=== PATIENT | female | born 1995 | race Caucasian/White ===

== ENCOUNTER 2019-01-11 08:19 | Emergency (ER) | payer MEDICAID, SELFPAY ==
[2019-01-11 08:20] VITALS: BP 143/69; PULSE 81; RESP 18; TEMP 36.8; O2SAT 98; BMI 28.6
--- NOTE | 2019-01-11 08:31 | ED.DCSUM_ITS ---
- ER Visit Summary Date of Service: 01/11/19 Chief Complaint: Abdominal pain History of Present Illness: The patient is a 23 F who is had abdominal pain for 5 days. She describes sharp pain as well as pressure in her suprapubic area that radiates into her lower back. Nothing seems to make this better. Sexual intercourse makes this pain worse. She has had nausea which preceded the pain. Denies any diarrhea or constipation. No dysuria hematuria or frequency. Denies any vaginal bleeding or vaginal discharge. She has had a history of a laparoscopy to evaluate for endometriosis but no other abdominal surgeries. She has not had any fevers at home. She states her last menstrual cycle was at the end of November and she is due to be starting this soon Physical Examination: Vital signs reviewed. HEENT exam unremarkable. Heart is regular rate and rhythm without murmurs. Lungs are clear to auscultation. Abdomen is soft with suprapubic tenderness. There is no guarding or rebound tenderness. Extremities reveal no edema. Skin exam normal. Neurologic exam normal. Test Results: HCG negative. Urinalysis negative for blood or infection Emergency Department Course and Treatment: Patient was given naproxen. She felt improvement with this. She is eating and drinking the room without difficulties. This could be related to ovarian cysts or possibly endometriosis as the patient has had a laparoscopy for this in the past. At this point I do not feel she needs any blood studies or imaging studies as her exam is fairly benign. Patient will be discharged with naproxen for pain. She will call her [facility] for follow-up Treatment Plan: [] Disposition: Discharge Impression: Pelvic pain This note was generated with [employer] dictation software. It may contain incorrect words, spelling, and punctuation that were not noted in review of the chart prior to signing ED Disposition - Plan for ED Patient: Referrals: [facility] Doctor,Out of [NON-STAFF] -
[2019-01-11 09:02] LABS: Mucous, Urine 0 SEEN /hpf (<or=2+); Red Blood Cells-Urine 0 SEEN /hpf (0-5); White Blood Cells 0 SEEN /hpf (0-5)
[2019-01-11] MEDS: Naproxen 500 MG Tablet PO (09:03)
[2019-01-11 09:05] LABS: Color, Urine Yellow (Yellow); Glucose, Dipstick Normal (Normal); Ketone-Dipstick Negative (Negative); Leukocyte Esterase-Dipstick Negative /ul (Negative); Nitrite-Dipstick Negative (Negative); Occult Blood-Urine Negative /ul (Negative); Protein-Dipstick 15 mg/dl (Negative); Urine Bilirubin Dipstick Negative (Negative); Urine Clarity Sl. Cloudy (Clear); Urine Urobilinogen Normal (Normal)
[2019-01-11 09:08] LABS: Internal QC Validated? YES +Cl - CLEAR BKGD; Pregnancy, Urine Negative Negative
[2019-01-11 09:12] LABS: Bacteria 1+ /hpf (None Seen); Squamous Epithelial Cells - UA 0-5 SEEN /hpf (5-10)
--- NOTE | 2019-01-11 09:18 | DCINST.ED_ITS ---
ED Disposition - Plan for ED Patient: Disposition: Home or Assisted Living Instructions: ED Pelvic Pain [facility] Prescriptions: Naproxen [Naprosyn] 500 mg PO BID PRN #20 tab Referrals: [facility] Doctor,Out of [NON-STAFF] - Jazmin Curry MD [STAFF PHYSICIAN] -
[2019-01-11 09:27] VITALS: BP 108/67; PULSE 71; RESP 15; O2SAT 98
== END 2019-01-11 09:28 | disposition home or self-care (01) ==
PROVIDERS: Emergency Provider Emergency Medicine; Family Provider Internal Medicine; PCP Internal Medicine
DX: R10.2 Pelvic and perineal pain (principal)
CPT/HCPCS: 81001; 81025; 99283

== ENCOUNTER 2019-03-13 09:36 | Emergency (ER) | payer MEDICAID, SELFPAY ==
[2019-03-13 09:37] VITALS: BP 124/84; PULSE 74; RESP 18; TEMP 36.6; O2SAT 100; BMI 25.7
--- NOTE | 2019-03-13 10:10 | CT_ITS ---
STUDY: CT ABDOMEN AND PELVIS WITH CONTRAST REASON FOR EXAM: Female, 24 years old. Abdominal pain. Nausea. Vomiting. Endometriosis. Black stool. RADIATION DOSAGE (If Supplied By Facility): CTDIvol = ( 13.58 ) mGy, DLP = ( 691.21 ) mGycm TECHNIQUE: Transaxial images were obtained from the dome of the diaphragm to the symphysis pubis with oral contrast. 100mL IV/Oral Isovue 300 was administered. Sagittal and coronal images were reconstructed. Individualized dose optimization techniques were used for this CT. COMPARISON: None. FINDINGS: Lung bases: Unremarkable. Heart: Unremarkable. Liver: Unremarkable. Gallbladder/biliary ducts: Unremarkable. Pancreas: Unremarkable. Spleen: Splenic granulomas (axial image 25 series 2). Adrenal glands: Unremarkable. Kidneys/ureters/bladder: Bilateral symmetric renal parenchymal enhancement. Nondistended ureters. Normal urinary bladder. Uterus/adnexa: Tampon. Heterogeneous attenuation of the uterus and adnexal regions with mild hyperemia. Large bowel/small bowel: No acute small bowel or large bowel process. Appendix: Unremarkable (axial image 79 series 2). Gastroesophageal junction/stomach: Unremarkable. Retroperitoneum/lymph nodes: No intra-abdominal free air. Trace pelvic free fluid (axial image 97 and series 2). No pathologically enlarged lymph nodes. Vascular: Unremarkable. Osseous structures: No significant degenerative changes. Tiny Schmorl's nodes. No acute findings. Subcutaneous/soft tissues: Small fat-containing umbilical hernia. No acute findings. CT/Abdomen/Pelvis WITH Contrast IMPRESSION: No acute intraabdominal/pelvic findings [employer] SPECIFICATION INSPECTOR findings statistically physiologic and/or related the patient's history of endometriosis (correlate cycle timing) Trace pelvic free fluid Electronically Signed: Hebert Belcher DO at 12:12 EDT Tel , Service support ,
--- NOTE | 2019-03-13 10:14 | ED.VISSUMM ---
- ER Visit Summary Date of Service: 03/13/19 Chief Complaint: Abdominal pain History of Present Illness: The patient is a 24 F who 3 days ago had sudden onset of left lower quadrant abdominal pain radiating up to the mid right abdomen. Pain was severe for about an hour and a half. She had nausea and vomiting at that time. Patient states the severe pain subsided but she still has soreness in her abdomen. She states today she had black stool. She does report taking Pepto a few days ago. Patient reports history of chronic abdominal problems. She states intermittently she will get abdominal pain with bouts of nausea and vomiting for several days at a time. Her brother has a history of ulcerative colitis. Physical Examination: Vital signs unremarkable. Patient lying in bed no acute distress. Heart is regular rate and rhythm. Lung sounds are clear. Abdomen is soft with mild tenderness along the left side of the abdomen. No guarding or rebound. Active bowel sounds are noted. Test Results: CBC and chemistry studies normal. LFTs and lipase normal. Urinalysis and test negative. CT abdomen pelvis shows no acute findings. There is a trace amount of free fluid in the pelvis. Emergency Department Course and Treatment: Patient was given Toradol, Zofran, and IV fluids. On repeat evaluation she is resting comfortably. Test results were discussed with her. We discussed the possibility of a small ovarian cyst that may ruptured a couple days ago and her pain was most severe. At this time there is no acute etiology for her symptoms. Treatment Plan: [] Disposition: Discharge Impression: Abdominal pain, uncertain etiology This note was generated with [employer] dictation software. It may contain incorrect words, spelling, and punctuation that were not noted in review of the chart prior to signing ED Disposition - Plan for ED Patient: Disposition: Home or Assisted Living Instructions: ED Abdominal Pain Unkn Cause Prescriptions: Ondansetron [Zofran Odt] 4 mg PO Q8H PRN PRN #10 tablet PRN Reason: Nausea Ketorolac [Toradol] 10 mg PO Q6H PRN #14 tablet PRN Reason: Pain Referrals: Jorge Luis Mendoza MD [Primary Care Provider] - 1 Week if not improving
[2019-03-13 10:28] LABS: Absolute Lymphocyte Count 2.14 X10^3/ul (0.83-4.51); Absolute Neutrophil Count 3.8 X10^3/uL (2.0-7.7); Basophil# 0.01 X10^3/uL; Basophil% 0.2 % (0-1); Eosinophil# 0.05 X10^3/uL; Eosinophils% 0.8 % (0-5); Hematocrit 41.7 % (37-47); Hemoglobin 14.6 g/dl (12.0-15.0); Lymphocyte # 2.14 X10^3/ul (4.0); Lymphocyte % 33.2 % (19-41); Mean Corpuscular Hgb 30.5 pg (27.0-32.0); Mean Corpuscular Volume 87.1 fL (81-99); Mean Platelet Vol. 10.3 fl (6.2-12.0); Monocyte% 6.2 % (0-10); Neutrophil # 3.84 X10^3/uL (2.7-7.7); Neutrophil % 59.4 % (47-70); POSITIVE COUNT NO; POSITIVE DIFFERENTIAL NO; POSITIVE MORPHOLOGY NO; Platelet Count 210 K/mm3 (150-450); RBC Distribution Width CV 12.4 % (11.6-14.6); Red Blood Count 4.79 M/mm3 (4.2-5.4); White Blood Count 6.5 K/mm3 (4.4-11.0)
[2019-03-13] MEDS: Ondansetron 4 MG/2 ML Vial IV (10:28)
[2019-03-13] MEDS: 0.9% Normal Saline 1,000 ML 150 ML IV (10:28)
[2019-03-13] MEDS: Ketorolac 30 MG/ML Syringe IV (10:28)
[2019-03-13 10:38] LABS: Bacteria 0 SEEN /hpf (None Seen); Mucous, Urine 0 SEEN /hpf (<or=2+); Red Blood Cells-Urine 0 SEEN /hpf (0-5); White Blood Cells 0 SEEN /hpf (0-5)
[2019-03-13 10:41] LABS: AST(SGOT) 15 U/L (15-37); Alanine Aminotransfer ALT/SGPT 27 U/L (13-56); Alkaline Phosphatase 94 U/L (45-117); Anion Gap 4 (5-15); BUN 12 mg/dL (7-18); BUN/Creat Ratio 15.7 RATIO (10-20); Bilirubin, Direct 0.18 mg/dL (0.00-0.30); Chloride 111 mmol/L (98-107); Creatinine, Serum 0.76 mg/dL (0.55-1.02); EST Glomerular Filtration Rate 101 mL/min (>60); Est Glom Filt Rate - Afr Amer 122 mL/min (>60); Estimated Creatinine Clearance 100.26 ml/min; Glucose 86 mg/dL (74-106); Lipase 68 U/L (73-393); Potassium 4.2 mmol/L (3.5-5.1); Sodium Level 141 mmol/L (136-145)
[2019-03-13 10:42] LABS: Color, Urine Straw (Yellow); Glucose, Dipstick Normal (Normal); Ketone-Dipstick Negative (Negative); Leukocyte Esterase-Dipstick Negative /ul (Negative); Nitrite-Dipstick Negative (Negative); Occult Blood-Urine Negative /ul (Negative); Protein-Dipstick Negative (Negative); Specific Gravity, Urine 1.005 (1.002-1.030); Urine Bilirubin Dipstick Negative (Negative); Urine Clarity Clear (Clear); Urine Urobilinogen Normal (Normal)
[2019-03-13 10:49] LABS: Squamous Epithelial Cells - UA 0-5 SEEN /hpf (5-10)
[2019-03-13 10:51] LABS: Internal QC Validated? YES +Cl - CLEAR BKGD; Pregnancy, Serum, hCG Quali. NEGATIVE Negative
[2019-03-13 12:52] VITALS: BP 126/57; PULSE 62; RESP 15; O2SAT 99
== END 2019-03-13 12:53 | disposition home or self-care (01) ==
PROVIDERS: Emergency Provider Emergency Medicine; Family Provider Internal Medicine; PCP Internal Medicine
DX: R10.32 Left lower quadrant pain (principal); K21.9 Gastro-esophageal reflux disease without esophagitis
CPT/HCPCS: 74177; 80048; 80076; 81001; 83690; 84703; 85025; 96361; 96374; 96375; 99283; J7030; Q9967; A4216; J2405

== ENCOUNTER 2020-01-04 05:51 | Emergency (ER) | payer MEDICAID, SELFPAY ==
[2020-01-04 05:52] VITALS: PULSE 82; RESP 16; TEMP 36.9; O2SAT 98; BMI 25.0
--- NOTE | 2020-01-04 05:56 | ED.VISSUMM ---
- ER Visit Summary Date of Service: 01/04/20 Chief Complaint: Headache History of Present Illness: The patient is a 24 F who presents with a headache. Started about an hour ago that woke her up from sleep. She describes sharp and burning pains in the front left part of her head. She did have vomiting at home. She admits to some blurry vision but no photophobia. No direct trauma. She tried Tylenol at home without any relief. No fevers or neck pain. She does have a history of migraine headaches. Physical Examination: Vital signs reviewed. HEENT exam unremarkable. Heart is regular rate and rhythm without murmurs. Lungs are clear to auscultation. Abdomen is soft and nontender. Extremities reveal no edema. Skin exam normal. Neurologic exam normal. Test Results: None performed Emergency Department Course and Treatment: Patient was given IV fluids, Reglan and Benadryl. Her headache was not improved I gave her IV Decadron. She will be signed out to the oncoming physician for further evaluation Treatment Plan: [] Disposition: Pending Impression: Migraine headache This note was generated with [employer] dictation software. It may contain incorrect words, spelling, and punctuation that were not noted in review of the chart prior to signing ED Disposition - Plan for ED Patient: Disposition: Home or Assisted Living Instructions: ED, Migraine (Classical) Referrals: Jorge Luis Mendoza MD [Primary Care Provider] -
[2020-01-04] MEDS: 0.9% Normal Saline 1,000 ML 999 ML IV (06:03)
[2020-01-04] MEDS: Metoclopramide 10 MG/2 ML Vial IV (06:03)
[2020-01-04] MEDS: DiphenhydrAMINE 50 MG/ML Syringe 25 MG IV (06:05)
[2020-01-04 07:59] VITALS: BP 98/55; PULSE 78; RESP 16; O2SAT 97
[2020-01-04] MEDS: Acetaminophen 500 MG Tablet 1000 MG PO (07:59)
--- NOTE | 2020-01-04 08:36 | ED.DEP ---
ED Disposition - Plan for ED Patient: Disposition: Home or Assisted Living Instructions: ED, Migraine (Classical) Prescriptions: Metoclopramide [Reglan] 10 mg PO TID PRN #15 tab PRN Reason: Migraine Symptoms Transmission Status: Pending to [facility] Referrals: Jorge Luis Mendoza MD [Primary Care Provider] - As Needed Additional Instructions: Reglan every 8 hours as needed for migraine. Also take with Benadryl 25 mg.
[2020-01-04] MEDS: Morphine 4 MG/ML Syringe IV (08:44)
[2020-01-04 09:14] VITALS: BP 99/50; PULSE 65; RESP 18
== END 2020-01-04 09:15 | disposition home or self-care (01) ==
PROVIDERS: Emergency Provider Emergency Medicine; PCP Internal Medicine
DX: G43.909 Migraine, unspecified, not intractable, without status migrainosus (principal)
CPT/HCPCS: 96361; 96374; 96375; 99284; J7030; A4216

== ENCOUNTER 2020-05-11 11:55 | Outpatient (CLI) | payer MEDICAID, SELFPAY ==
[2020-05-11 12:46] VITALS: BMI 27.4
--- NOTE | 2020-05-11 13:02 | OB.TRI.NOTE ---
- Problem List (1) 25 weeks gestation of Status: Acute (2) Decreased movement Status: Acute History of Present Illness Date of Service: 05/11/20 Was patient seen by the physician?: Yes Reason For Visit: DECREASED MOVEMENT Date of Service: 05/11/20 Final NOALN: 08/20/20 Gestational age: 25 Weeks and 4 Days History of Present Illness: Patient is 25 year old that is 25.4 weeks gestation that presents with decreased movement. Patient stated she has not felt almost any movement since Tuesday and has not felt any movement today. Denies loss of fluid, vaginal bleeding or cramping. Allergies No Known Allergies Allergy (Verified 01/04/20 05:56) Review of Systems Constitutional: Denies: Anorexia Eyes: Denies: Blurred vision Cardiovascular: Denies: Chest Pain, Edema Respiratory: Denies: Cough, Shortness of Breath Gastrointestinal: Denies: Abdominal Pain Genitourinary: Denies: Dysuria Gynecological: Denies: Vaginal bleeding Neurological: Denies: Blurred vision, Headaches Physical Exam General: Alert, Oriented x3 Cardiovascular: Regular rate Lungs: Normal air movement Abdomen: Soft, Non Tender, Gravid Neurological: Cranial nerves II-XII grossly intact NST - FHR Rate Baby A Baseline: 140 Variability:: Moderate NST Reactive:: Appropriate for gestational age Uterine Activity:: none noted Impression/Plan at 25.4 weeks gestation presents for decreased movement. Monitor EFM and TOCO- once here started to feel movement Routine care Educated on kick counts and irregularity of movement prior to 28 weeks gestation Anticipate discharge home- follow up at [facility] .
== END 2020-05-11 13:05 | disposition home or self-care (01) ==
LOC: WPOUT 12:08 → WP 05-12 10:13
PROVIDERS: PCP Internal Medicine; Visit Provider Advanced Practice Midwife
DX: O36.8120 Decreased fetal movements, second trimester, not applicable or unspecified (principal); Z3A.25 25 weeks gestation of pregnancy
CPT/HCPCS: 59050; 99218; G0378

== ENCOUNTER 2020-05-26 10:55 | Outpatient (CLI) | payer MEDICAID, SELFPAY ==
[2020-05-26 11:09] VITALS: BMI 28.0
[2020-05-26 11:13] VITALS: PULSE 78; TEMP 36.7
[2020-05-26 11:14] VITALS: BP 103/64; PULSE 78
--- NOTE | 2020-05-26 16:50 | OB.TRI.NOTE ---
History of Present Illness Date of Service: 05/26/20 Was patient seen by the physician?: No Reason For Visit: DECREASED MOVEMENT Date of Service: 05/26/20 Gestational age: 27.5 Allergies No Known Allergies Allergy (Verified 05/26/20 11:08) Physical Exam Vitals: Vital Signs Temp Pulse BP 98.1 F 78 103/64 05/26/20 11:13 05/26/20 11:14 05/26/20 11:14 Impression/Plan 25yo @ 27.5 weeks- decreased FM 1) unable to get continuos FHR- But according to nursing staff baby was active with audible movements - discharge home
== END 2020-05-26 12:00 | disposition home or self-care (01) ==
LOC: WPOUT 11:02 → OBT 11:03
PROVIDERS: PCP Internal Medicine; Referring Provider Obstetrics & Gynecology; Visit Provider Obstetrics & Gynecology
DX: O36.8120 Decreased fetal movements, second trimester, not applicable or unspecified (principal); Z3A.27 27 weeks gestation of pregnancy

== ENCOUNTER 2020-08-09 16:28 | Inpatient (IN) | payer MEDICAID, SELFPAY ==
[2020-08-09] VITALS (28 sets, daily range): BP systolic 108–141; BP diastolic 55–87; PULSE 69–108; TEMP 36–36.8; O2SAT 96–100; BMI 32.2
[2020-08-09] MEDS: Lactated Ringers 500 ML 999 ML IV ×2 (16:40→19:50)
[2020-08-09 17:12] LABS: Absolute Lymphocyte Count 1.57 X10^3/uL (0.83-4.51); Absolute Neutrophil Count 6.8 X10^3/uL (2.0-7.7); Basophil# 0.03 X10^3/uL; Basophil% 0.3 % (0-1); Eosinophil# 0.13 X10^3/uL; Eosinophils% 1.4 % (0-5); Hematocrit 37.6 % (37-47); Hemoglobin 12.4 g/dL (12.0-15.0); Lymphocyte # 1.57 X10^3/ul (4.0); Lymphocyte % 16.5 % (19-41); Mean Corpuscular Hgb 28.9 pg (27.0-32.0); Mean Corpuscular Volume 87.6 fL (81-99); Mean Platelet Vol. 10.1 fl (6.2-12.0); Monocyte# 0.91 X10^3/uL; Monocyte% 9.6 % (0-10); NRBC Flagged by Analyzer 0 % (0-5); Neutrophil % 71.7 % (47-70); Platelet Count 286 K/mm3 (150-450); RBC Distribution Width CV 14.1 % (11.6-14.6); RBC Distribution Width SD 44.6 fl (35.1-43.9); Red Blood Count 4.29 M/mm3 (4.2-5.4); White Blood Count 9.5 K/mm3 (4.4-11.0)
[2020-08-09] MEDS: Lactated Ringers 1,000 ML 200 ML IV (17:15)
--- NOTE | 2020-08-09 17:43 | PCM.HP.OB ---
- Problem List (1) 38 weeks gestation of Status: Acute History Date of Admission: 08/09/20 Final NOLAN: 08/20/20 Gestational age: 38 Weeks and 3 Days History of this : This is a 25 year-old, G [3], P [1011], at 38.3 weeks gestational age that presents to triage with spontaneous contractions that started yesterday. Denies any loss of fluid or vaginal bleeding. Positive movement. Patient reports contractions that have continued to increase in frequency and pain. Reports pain 06/02. has been uncomplicated. Patient has a history of a delivery. Allergies No Known Allergies Allergy (Verified 05/26/20 11:08) Smoking Status: Former smoker Number of Fetus(es): 1 NST - FHR Rate Baby A Baseline: 130 Variability:: Moderate Accelerations:: 15 x 15 Decelerations:: None NST Reactive:: Yes FHR Category:: Category I Uterine Activity:: Every 3-5 minutes History Past Pregnancies: Past Pregnancies Delivery Date Name GA/ Weeks Outcome Route Wt Sex Labor Length Anesthesia Delivery Location Provider FOB Labs: O+ Rubella immune HB- neg HC - neg RPR- NR HIV- NR GBS- negative COVID-10- unknown Expected Delivery Method: Spontaneous Vaginal Review of Systems Constitutional: Denies: Anorexia, Chills, Fever Respiratory: Denies: Cough, Shortness of Breath Genitourinary: Denies: Dysuria Physical Exam Vitals: Vital Signs Pulse BP Pulse Ox 102 H 122/64 H 99 08/09/20 17:42 08/09/20 17:42 08/09/20 17:41 General: Alert, Oriented x3 Cardiovascular: Regular rate Lungs: Normal air movement Abdomen: Soft, Non Tender, Gravid Extremities:: No edema Neurological: Cranial nerves II-XII grossly intact Estimated gestational size: Appropriate for gestational size Presentation: Cephalic Cervix Dilation (cm): 4.5 Station: -1 Effacement (%): 90 Assessment/Plan All Active Problems 25 weeks gestation of (Acute) Decreased movement (Acute) 38 weeks gestation of (Acute) This is a 25 year-old, G [3], P [1001], at 38.3 weeks gestational age in spontaneous labor A/P CE- 4.5/90/-1 with bulging bag Admit to labor and delivery Routine labs IV fluids per policy GBS negative Pain medications/epidural when indicated IV Pitocin for Augmentation if indicated Anticipate Dr. Quintanilla notified of admission and is collaborating physician
[2020-08-09] MEDS: fentaNYL-bupivacaine (epidural) 100 ML BAG EPIDURAL (17:58)
[2020-08-09] MEDS: Oxytocin 30 units/NS 500 ml 30 UNITS/500 ML IV.SOLN IV (18:35)
[2020-08-09] MEDS: Oxytocin 30 units/NS 500 ml 30 UNITS/500 ML IV.SOLN 999 UNITS IV (20:49)
--- NOTE | 2020-08-09 21:19 | PCM.OPRPT ---
Problem List (1) 38 weeks gestation of Status: Acute Report of Operation Date of Procedure: 08/09/20 Vaginal Delivery Maternal Presentation: Active Labor Amniotic Membrane Rupture Type: Artificial Amniotic Fluid Description: Clear Final NOLAN: 08/20/20 Gestational age: 38 Weeks and 3 Days Date of Procedure: 08/09/20 Pre-Operative Diagnosis: Term, spontaneous labor Post-Operative Diagnosis: Same, live male infant Surgery/ Procedure Performed: Spontaneous Vaginal Delivery Type of Anesthesia: Epidural Description of Procedure: Patient quickly progressed to complete dilation with urge to push. head delivered quickly over intact perineum with minimal maternal effort, followed qu by the remainder of body. Infant placed on abdomen and was attended to by nursing staff. Cord was clamped and cut by FOB after 2 minute delay. placed immediately skin to skin with patient. Pitocin IV started for active management of third stage. Placenta delivered spontaneously and intact. 3 vessel cord. 250 cc EBL. After inspection it was noted that vaginal and perineum were intact, no lacerations noted. A vaginal sweep was completed by my. All sponges, needles and instruments accounted for. Patient and bonding well at this time. Presentation: Vertex, PAULA Placental Delivery Description: Spontaneous Placenta Disposition: [facility] Cord Vessel Description: 3 Vessels Cord Entanglement: None Estimated Blood Loss: 250 A gender: Male (1 minute): 8 (5 minute): 8 Episiotomy Description: None Laceration: None Medications given after delivery: IV Pitocin Complications: None
[2020-08-09] MEDS: 0.9% Saline Lock 10 ML Syringe IV (23:14)
[2020-08-09] MEDS: Ibuprofen 600 MG Tablet PO (23:14)
--- NOTE | 2020-08-10 00:06 | NURSING ---
this rn gave report to elysia JURADO. that rn to assume care of pt at this time.
[2020-08-10 00:36] VITALS: BP 120/71; PULSE 81; RESP 16; TEMP 36.4
[2020-08-10] MEDS: Acetaminophen 500 MG Tablet 1000 MG PO ×3 (01:37→19:01)
[2020-08-10 04:22] VITALS: BP 94/52; PULSE 75; RESP 16; TEMP 36.2
[2020-08-10] MEDS: Ibuprofen 600 MG Tablet PO ×3 (05:28→17:34)
[2020-08-10 08:34] VITALS: BP 104/65; PULSE 75; RESP 16; TEMP 36.2
[2020-08-10] MEDS: Etonogestrel 68 MG IMPLANT SQ (08:45)
--- NOTE | 2020-08-10 09:19 | PCM.PN.OB ---
Patient Problems: Active and Suspected Problems 38 weeks gestation of (Acute) Subjective: Patient seen at bedside. Feeling well. Denies any pain. Ambulating and voiding without difficulty. going well, cramping controlled with Motrin and Tylenol PO. Patient desires discharge home at 24 hours. Desires LARC- Nexplanon placement. - Physical Exam Vitals/I&O's: Vital Signs Temp Pulse Resp BP Pulse Ox 97.2 F L 75 16 104/65 99 08/10/20 08:34 08/10/20 08:34 08/10/20 08:34 08/10/20 08:34 08/09/20 22:46 Oxygen Delivery Method Room Air Weight: 188 lb Body Mass Index (BMI) 32.2 Intake and Output for Last 24 Hours 08/08/20 08/09/20 08/10/20 23:59 23:59 23:59 Intake Total Output Total 900 / 900 1800 / 1800 Balance 1119.17 / 1119.17 -1800 / -1800 General: Alert, Oriented x3, Cooperative Lungs: Normal air movement Cardiovascular: Regular rate Abdomen: Soft, Non Tender Psych/Mental Status: Normal Affect Laboratory Results 08/09/20 16:35: WBC 9.5, RBC 4.29, Hgb 12.4, Hct 37.6, MCV 87.6, MCH 28.9, MCHC 33.0, RDW Std Deviation 44.6 H, RDW Coeff of April 14.1, Plt Count 286, MPV 10.1, Immature Gran % (Auto) 0.500, Neut % (Auto) 71.7 H, Lymph % (Auto) 16.5 L, [place] % (Auto) 9.6, Eos % (Auto) 1.4, Baso % (Auto) 0.3, Absolute Neuts (auto) 6.8, Absolute Lymphs (auto) 1.57, Nucleated RBC % 0 08/09/20 16:35: Blood Type O POSITIVE, Antibody Screen NEGATIVE Current Medications Acetaminophen (Acetaminophen 500 Mg Tablet) 1,000 mg PO Q8H PRN PRN PRN Reason: Pain Score 1-3 Last Admin: 08/10/20 01:37 Dose: 1,000 mg Documented by: Bisacodyl (Bisacodyl 10 Mg Suppository) 10 mg RECTAL UD PRN PRN Reason: If no BM Dibucaine (Dibucaine 30 Gm Tube) 1 applic TOPICAL TID PRN PRN; Protocol PRN Reason: Discomfort Hydrocortisone (Hydrocortisone 2.5% Crm) 1 applic TOPICAL TID PRN PRN; Protocol PRN Reason: Discomfort Ibuprofen (Ibuprofen 600 Mg Tablet) 600 mg PO Q6H PRN PRN PRN Reason: Pain Score 1-3 Last Admin: 08/10/20 05:28 Dose: 600 mg Documented by: Methylergonovine Maleate (Methylergonovine 0.2 Mg/Ml Ampul) 0.2 mg IM X1 PRN PRN Reason: Excess bleeding/uterine atony Ondansetron HCl (Ondansetron 4 Mg/2 Ml Vial) 4 mg IV Q4H PRN PRN PRN Reason: Nausea Senna/Docusate Sodium (Senna/Docusate Sodium 1 Tablet) 1 - 2 tablet PO DAILY PRN PRN PRN Reason: Constipation Simethicone (Simethicone 80 Mg Tablet) 80 mg PO PCHS PRN PRN Reason: Indigestion/Stomach pain Sodium Chloride (0.9% Saline Lock 10 Ml Syringe) 5 - 15 ml IV UD PRN PRN Reason: SALINE FLUSH Last Admin: 08/09/20 23:14 Dose: 10 ml Documented by: Medical Necessity - Tobacco Use Smoking Status: Former smoker Assessment/Plan All Active Problems 25 weeks gestation of (Acute) Decreased movement (Acute) 38 weeks gestation of (Acute) PPD #1 intact perineum Pain controlled Routine care support Nexplanon placement prior to discharge home Discharge home at 24 hours
--- NOTE | 2020-08-10 09:26 | DCINST_ITS ---
Discharge Diet: No Restrictions Discharge Activity: Return to Normal Activity May resume sexual activity in: 6-8 weeks Additional Instructions: If you experience any of the following, contact your healthcare provider. * Bleeding that soaks a pad every hour for 2 hours * Fever 100.4 or higher * Unrelieved incision or abdominal pain * Swelling, redness, discharge or bleeding from your incision or episiotomy site * Your incision begins to separate * Problems urinating (including inability to urinate or burning while urinating). * Visual changes * Severe headache * Flu-like symptoms * Pain or redness in one of both of your breasts * Pain, warmth, tenderness or swelling in your legs, especially the calf area * Frequent nausea and vomiting * Symptoms of depression or anxiety If you experience any of the following, call 911 or go to the nearest Emergency Room. * Chest pain * Problems breathing * Seizure activity * Partial or complete paralysis of a body part, slurred speech, weakness or drooping of the face, or a sudden inability to walk or hold your balance Allergies/Adverse Reactions: Allergies No Known Allergies Allergy (Verified 05/26/20 11:08) Please Follow Up With: alex When: 2 weeks virtual visit/ 6 weeks in office Primary Care Physician: Jorge Luis Mendoza MD [Primary Care Provider] - Test Results: Test results from this visit will be discussed in further detail at your follow- up appointment, if applicable. Proposed Discharge Date: 08/10/20
--- NOTE | 2020-08-10 09:26 | PCM.DCVAG ---
Discharge Diet: No Restrictions Discharge Activity: Return to Normal Activity May resume sexual activity in: 6-8 weeks Additional Instructions: If you experience any of the following, contact your healthcare provider. Bleeding that soaks a pad every hour for 2 hours Fever 100.4 or higher Unrelieved incision or abdominal pain Swelling, redness, discharge or bleeding from your incision or episiotomy site Your incision begins to separate Problems urinating (including inability to urinate or burning while urinating). Visual changes Severe headache Flu-like symptoms Pain or redness in one of both of your breasts Pain, warmth, tenderness or swelling in your legs, especially the calf area Frequent nausea and vomiting Symptoms of depression or anxiety If you experience any of the following, call 911 or go to the nearest Emergency Room. Chest pain Problems breathing Seizure activity Partial or complete paralysis of a body part, slurred speech, weakness or drooping of the face, or a sudden inability to walk or hold your balance Allergies/Adverse Reactions: Allergies No Known Allergies Allergy (Verified 05/26/20 11:08) Please Follow Up With: alex When: 2 weeks virtual visit/ 6 weeks in office Primary Care Physician: Jorge Luis Mendoza MD [Primary Care Provider] - Test Results: Test results from this visit will be discussed in further detail at your follow-up appointment, if applicable. Proposed Discharge Date: 08/10/20
[2020-08-10] MEDS: Dibucaine 30 GM Tube 1 APPLIC TOPICAL (10:36)
[2020-08-10 12:06] VITALS: BP 103/53; PULSE 77; RESP 16; TEMP 36.4
[2020-08-10 17:26] VITALS: BP 129/74; PULSE 79; RESP 16; TEMP 36.6
[2020-08-10 22:14] VITALS: BP 107/66; PULSE 62; RESP 18; TEMP 36.4
--- NOTE | 2020-08-19 12:16 | PCM.OP.PRO ---
Problem List (1) 38 weeks gestation of Status: Acute Procedure Report Date of Procedure: 08/10/20 Consent signed. Nexplanon inserted without difficulty in left arm. Pressure dressing placed and instructions for follow up given.
== END 2020-08-10 22:50 | disposition home or self-care (01) | DRG 560 ==
LOC: WPOUT 16:30 → WP 16:30
PROVIDERS: Admitting Provider Advanced Practice Midwife; PCP Internal Medicine; Referring Provider Advanced Practice Midwife; Visit Provider Advanced Practice Midwife
DX: O80 Encounter for full-term uncomplicated delivery (principal); Z3A.38 38 weeks gestation of pregnancy; Z37.0 Single live birth
CPT/HCPCS: 59025; 59050; 85025; 86850; 86900; 86901; 99218; J7120; A4216; G0378

== ENCOUNTER 2022-08-29 15:15 | Outpatient (CLI) | payer MEDICAID, SELFPAY ==
[2022-08-29 15:31] VITALS: BMI 32.3
[2022-08-29 15:42] VITALS: BP 110/58; PULSE 96
[2022-08-29 15:43] VITALS: TEMP 37.1
[2022-08-29 16:05] LABS: ROM Internal Control Test YES-OK TO RESULT pt. (Internal QC); ROM Patient Test Negative (Negative)
[2022-08-29 16:40] VITALS: TEMP 37.2
[2022-08-29 16:41] VITALS: BP 113/57; PULSE 73
[2022-08-29 16:42] VITALS: PULSE 84; O2SAT 97
--- NOTE | 2022-09-01 19:25 | OB.TRI.PN ---
Progress Notes Progress Note: Presents for leakage of fluid. at 37w4d Laboratory Studies: Laboratory Tests 08/29/22 Range/Units 15:35 Vag Amniotic Fld Detect Negative (Negative) NST 120, moderate variability, accels, no decels reactive Assessment & Plan (1) Vaginal discharge: PLAN: Plan 1) ROM plus negative and no active leakage of fluid 2) NST reactive 3) D/C home
== END 2022-08-29 17:00 | disposition home or self-care (01) ==
LOC: WPOUT 15:23 → WP 15:23
PROVIDERS: PCP Internal Medicine; Referring Provider Advanced Practice Midwife; Visit Provider Advanced Practice Midwife
DX: O26.893 Other specified pregnancy related conditions, third trimester (principal); N89.8 Other specified noninflammatory disorders of vagina; Z3A.37 37 weeks gestation of pregnancy
CPT/HCPCS: 59050 ×2; G0378; 84112; 99218

== ENCOUNTER 2022-09-01 00:48 | Inpatient (IN) | payer MEDICAID, SELFPAY ==
[2022-09-01] VITALS (43 sets, daily range): BP systolic 97–150; BP diastolic 52–86; PULSE 70–121; RESP 15–16; TEMP 36.6–37.2; O2SAT 83–100; BMI 32.2
[2022-09-01] MEDS: Lactated Ringers 1,000 ML 50 ML IV (00:55)
[2022-09-01] MEDS: LACTATED RINGERS 500 ML 999 ML IV (01:00)
[2022-09-01 01:09] LABS: Absolute Lymphocyte Count 1.92 X10^3/uL (0.83-4.51); Absolute Neutrophil Count 8.6 X10^3/uL (2.0-7.7); Basophil# 0.02 X10^3/uL; Basophil% 0.2 % (0-1); Eosinophil# 0.03 X10^3/uL; Eosinophils% 0.3 % (0-5); Hemoglobin 12.6 g/dL (12.0-15.0); Lymphocyte # 1.92 X10^3/ul (0.83-4.51); Lymphocyte % 16.8 % (19-41); Mean Corp Hgb Conc 33.2 g/dL (32-36); Mean Corpuscular Hgb 27.4 pg (27.0-32.0); Mean Corpuscular Volume 82.6 fL (81-99); Mean Platelet Vol. 10.3 fl (6.2-12.0); Monocyte# 0.83 X10^3/uL; Monocyte% 7.3 % (0-10); NRBC Flagged by Analyzer 0 % (0-5); Neutrophil # 8.56 X10^3/uL (2.7-7.7); Neutrophil % 74.9 % (47-70); Platelet Count 243 K/mm3 (150-450); RBC Distribution Width CV 14.9 % (11.6-14.6); RBC Distribution Width SD 44.7 fl (35.1-43.9); White Blood Count 11.4 K/mm3 (4.4-11.0)
--- NOTE | 2022-09-01 01:10 | PCM.HP.OB ---
HPI - General General Date of Admission: 09/01/22 Date of Service: 09/01/22 Chief Complaint: contractions HPI Narrative KARAN BARKER, is a 27 para 2-0-1-2 who presents at 38-0/7 weeks complaining contractions for the last couple of hours. No gross vaginal bleeding or leaking of fluid. Good movement. is complicated today by anemia and vaping during . She has a history of 2 previous full-term vaginal deliveries Maternal Data Information Final NOLAN: 09/15/22 Gestational age: 38 PFSH PFSH Home Medications 1 tab PO.IVFORM DAILY 09/01/22 [History Last Taken Unknown] magnesium 1 tablet PO.IVFORM DAILY muscle cramps 09/01/22 [History Last Taken Unknown] Allergy/AdvReac Type Severity Reaction Status Date / Time No Known Allergies Allergy Verified 09/01/22 01:07 Social History Smoking Status: Former smoker History Elective abortions Hx Para 2 Spontaneous abortions Hx # Term Pregnancies Ectopic pregnancies Hx # Pregnancies Multiple births # of living children ROS Constitutional Constitutional: Denies fatigue, fever(s) or malaise Eyes Eyes: Denies change in vision ENT HEENT: Denies dizziness or headache(s) Cardiovascular Cardiovascular: Denies chest pain, dyspnea or lightheadedness Respiratory/Chest Respiratory/Chest: Denies cough or dyspnea Gastrointestinal Gastrointestinal: Denies change in bowel habits Genitourinary Genitourinary: Denies burning urination or genital lesions Integumentary Integumentary: Denies rash Neurologic Neurologic: Denies confusion, dizziness, headache(s), numbness or weakness Vital Signs Vital Signs Vital Signs: 09/01/22 00:51 09/01/22 00:55 09/01/22 00:55 Temperature Temperature Source Temporal Pulse Rate 83 Blood Pressure 130/72 H BP Systolic 130 BP Diastolic 72 09/01/22 00:51 Temperature 98.4 F Temperature Source Pulse Rate Blood Pressure BP Systolic BP Diastolic Physical Exam Const alert and no apparent distress General Appearance: cooperative HEENT normocephalic Resp normal respiratory effort Cardio regular rate GI soft to palpation GI Narrative: gravid, nontender, appropriate for gestational age Extremity no calf tenderness General Extremity: edema Skin no wounds Rashes: No rashes noted Psych activity/motor behavior normal Labs Labs Labs: Blood Type O POSITIVE Antibody Screen NEGATIVE Hct 38.0 % (37-47) Hgb 12.6 g/dL (12.0-15.0) Rhogam given: No Assessment & Plan (1) 38 weeks gestation of : PLAN: Estimated weight is less than 4500 g clinically and by ultrasound pelvis clinically adequate to expect vaginal delivery. May have epidural as desired. (2) Spontaneous onset of labor:
[2022-09-01] MEDS: Ondansetron 4 MG/2 ML Vial IV (01:22)
[2022-09-01] MEDS: Oxytocin 10 UNITS/ML Vial IM (02:03)
--- NOTE | 2022-09-01 02:10 | EX.PCM.OBRPT ---
Assessment & Plan (1) (spontaneous vaginal delivery): Maternal Data Information Final NOLAN: 09/15/22 Gestational age: 38 Vaginal Delivery Maternal Presentation Maternal Presentation: Active Labor Operative Information Date of Procedure: 09/01/22 Pre-Operative Diagnosis: labor Post-Operative Diagnosis: same Surgery / Procedure Performed: Spontaneous Vaginal Delivery Type of Anesthesia: None Drain: - (none) Estimated Blood Loss: 300 Time of Delivery: 01:59 Findings Description of Procedure: A vigorous male infant was delivered KATE over an intact perineum. The remainder the was delivered with maternal pushing and gentle traction only in less than 15 seconds. The Pitocin infusion was initiated for active management of the third stage. The cord was clamped and cut after cord pulsations ceased. The was attended to by the waiting nursing staff. The placenta was delivered spontaneously and intact. The cervix and vagina were intact. Sponge and needle counts were correct. A vaginal sweep was completed by me. Presentation: KATE Amniotic Membrane Rupture Type: Spontaneous Amniotic Fluid Description: Clear Placental Delivery Description: Spontaneous Placenta Disposition: [facility] Cord Vessel Description: 3 Vessels Cord Entanglement: None Infant A Gender: Male (1 minute): 7 (5 minute): 8 Delayed Cord Clamping: Yes Post Vaginal Delivery Medications Given After Delivery: - (IM Pitocin) Episiotomy Description: None Laceration: None Complication Complications: None
[2022-09-01] MEDS: Ibuprofen 600 MG Tablet PO ×3 (02:36→21:29)
[2022-09-01] MEDS: Methylergonovine 0.2 MG/ML Ampul IM (03:41)
[2022-09-01 04:43] LABS: Amphetamine Urine VISTA NEGATIVE (<1000 ng/mL); Barbiturate Urine VISTA NEGATIVE (< 200 ng/mL); Benzodiazepine Urine VISTA NEGATIVE (< 200 ng/mL); Cocaine Urine VISTA NEGATIVE (< 300 ng/mL); Ecstacy Urine VISTA NEGATIVE (< 500 ng/mL); Methadone Urine VISTA NEGATIVE (< 300 ng/mL); PCP Urine VISTA NEGATIVE (< 25 ng/mL); THC Urine VISTA NEGATIVE (< 50 ng/mL); Vista UDS pH Range 7
[2022-09-01] MEDS: Acetaminophen 500 MG Tablet 1000 MG PO ×2 (06:42→19:55)
--- NOTE | 2022-09-01 08:22 | PN.OBGYN_ITS ---
Objective Data Objective Data Vital Signs: Vital Signs Temp Pulse BP Pulse Ox 97.8 F 77 112/55 L 98 09/01/22 03:55 09/01/22 03:50 09/01/22 03:47 09/01/22 03:50 Weight: 188 lb Body Mass Index (BMI) 32.2 Intake & Output: Intake and Output for Last 24 Hours 08/30/22 08/31/22 09/01/22 23:59 23:59 23:59 Intake Total 500 / 500 Balance 500 / 500 Lab / Micro Data Result Diagrams: 09/01/22 00:55 Labs: Laboratory Results - last 24 hr 09/01/22 00:55: WBC 11.4 H, RBC 4.60, Hgb 12.6, Hct 38.0, MCV 82.6, MCH 27.4, MCHC 33.2, RDW Std Deviation 44.7 H, RDW Coeff of April 14.9 H, Plt Count 243, MPV 10.3, Immature Gran % (Auto) 0.500, Neut % (Auto) 74.9 H, Lymph % (Auto) 16.8 L, Sargent % (Auto) 7.3, Eos % (Auto) 0.3, Baso % (Auto) 0.2, Absolute Neuts (auto) 8.6 H, Absolute Lymphs (auto) 1.92, Nucleated RBC % 0 09/01/22 00:55: Blood Type O POSITIVE, Antibody Screen NEGATIVE 09/01/22 04:15: Urine Opiates Screen NEGATIVE, Urine Methadone Screen NEGATIVE, Ur Barbiturates Screen NEGATIVE, Ur Phencyclidine Scrn NEGATIVE, Ur Amphetamines Screen NEGATIVE, MDMA (Ecstasy) Screen NEGATIVE, U Benzodiazepines Scrn NEGATIVE, Urine Cocaine Screen NEGATIVE, U Cannabinoids Screen NEGATIVE, Ur Drug Screen Comment Micro: Microbiology 09/01/22 00:55 Nasal Secretion SARS-CoV-2 Antigen (Rapid) - Final
[2022-09-01] MEDS: Senna/Docusate Sodium 1 Tablet PO (12:46)
[2022-09-02 00:15] VITALS: BP 111/53; PULSE 87; RESP 17; TEMP 36.3
[2022-09-02 04:40] VITALS: BP 107/47; PULSE 75; RESP 16; TEMP 36.4
--- NOTE | 2022-09-02 08:35 | PCM.DC.SUM ---
Providers Date of Admission: 09/01/22 Primary Care Physician: Dr. Jorge Luis Mendoza MD Reason For Visit: VAG Diagnosis Discharge Diagnosis (1) (spontaneous vaginal delivery): Status: Acute Code(s): O80 - Encounter for full-term uncomplicated delivery Medications at Discharge Home Medications 1 tab PO.IVFORM DAILY 09/01/22 magnesium 1 tablet PO.IVFORM DAILY muscle cramps 09/01/22 Hospital Course Operations None Procedures None Summary of Care Provided Hospital Course: 27-year-old multigravida admitted in spontaneous labor on 09/01/2022. She had a precipitous spontaneous vaginal delivery. By day #1 she was ambulating, urinating tolerating regular diet and the was doing well. She desired discharge home. Weight / BMI Weight Weight: 85.275 kg Body Mass Index (BMI) 32.2 ABG / Lab / Microbiology Data Result Diagrams: 09/01/22 00:55 Microbiology: Microbiology 09/01/22 00:55 Nasal Secretion SARS-CoV-2 Antigen (Rapid) - Final D/C Instructions May resume sexual activity in: 6 weeks Please Follow Up With: Jazmin Curry MD When: Follow up with our office in 1-2 and 6 weeks or as needed. [phone] Meaningful Use Info Meaningful Use Diagnoses (Choose all that apply): None applicable Discharge Plan Admission Admit Date/Time: 09/01/22 00:48 Primary Reason for Your Visit: Vaginal delivery Attending Provider: Jazmin Curry Primary Care Provider: Jorge Luis Mendoza Discharge Orders/Prescriptions Prescriptions: No Action 1 tab PO.IVFORM DAILY magnesium 1 tablet PO.IVFORM DAILY Referrals / Follow Up: Jorge Luis Mendoza MD [Primary Care Provider] - Disposition Disposition (needs filled in before D/C Order can be placed): Home, Self Care
--- NOTE | 2022-09-02 08:39 | PCM.PN.OB ---
Subjective Subjective Patient seen at bedside. . Denies pain. Ambulating and voiding without difficulty. Desires discharge home today. Objective Data Objective Data Vital Signs: Vital Signs Temp Pulse Resp BP Pulse Ox O2 Del Method 97.5 F L 75 16 107/47 L 98 Room Air 09/02/22 04:40 09/02/22 04:40 09/02/22 04:40 09/02/22 04:40 09/01/22 20:00 09/01/22 20:00 Oxygen Delivery Method Room Air Weight: 188 lb Body Mass Index (BMI) 32.2 Intake & Output: Intake and Output for Last 24 Hours 08/31/22 09/01/22 09/02/22 23:59 23:59 23:59 Intake Total 500 / 500 Balance 500 / 500 Lab / Micro Data Result Diagrams: 09/01/22 00:55 Micro: Microbiology 09/01/22 00:55 Nasal Secretion SARS-CoV-2 Antigen (Rapid) - Final ROS Eyes Eyes: Denies blurry vision, change in vision or spots in vision ENT HEENT: Denies dizziness or headache(s) Cardiovascular Cardiovascular: Denies abdominal pain, chest pain or dyspnea Respiratory/Chest Respiratory/Chest: Denies cough, dyspnea, shortness of breath at rest or shortness of breath with exertion Gastrointestinal Gastrointestinal: Denies abdominal pain, diarrhea or vomiting Genitourinary Genitourinary: Denies change in urinary stream, difficulty urinating or dysuria Musculoskeletal Musculoskeletal: Reports none Integumentary Integumentary: Denies rash Neurologic Neurologic: Denies dizziness, headache(s), memory loss or weakness Physical Exam Const alert and no apparent distress General Appearance: cooperative and comfortable Exam Limitations: no limitations HEENT normocephalic Eyes General Eye: normal appearance of both eyes Neck full ROM General: normal visual inspection Chest Chest: symmetrical chest wall rise Resp normal respiratory effort and normal air movement Effort and Inspection: symmetric chest movement Auscultation: clear to auscultation bilaterally Cardio regular rate and regular rhythm GI normal to inspection, nondistended, normoactive bowel sounds Back/Spine normal ROM Extremity full ROM and no calf tenderness General Extremity: normal exam except as noted Skin no rashes or lesions noted Neuro CN's II-XII intact bilaterally Psych mental status grossly normal Assessment & Plan (1) Vaginal discharge: (2) Care and examination of lactating mother: PLAN: Plan PPD 1 Routine care support D/C home with follow up in office Desires BTL at 6 weeks
[2022-09-02 08:44] VITALS: BP 111/63; PULSE 85; RESP 16; TEMP 36.4; O2SAT 98
[2022-09-02] MEDS: Ibuprofen 600 MG Tablet PO (11:08)
[2022-09-02 12:06] VITALS: BP 107/62; PULSE 81; RESP 16; TEMP 36.4; O2SAT 99
--- NOTE | 2022-09-02 14:20 | CASEMGMT ---
Social Work Assessment Labor and Delivery Unit Patient Address: [address] [place] [address] Phone number: [phone] Date of Referral: 09/02/2022 Time of Referral: [id number] Referred By: Dr. Jazmin Curry Date of Intervention: 09/02/2022 Time of Intervention: Approximately 1400 Reason for Referral: Maternal mental health, history of suicidal ideations as a teenager History obtained from: Medical records and mother of baby (MOB) [address]; father of baby (FOB) Ambrocio Jones present for part of conversation. Household composition: MOB, FOB, MOB's grandmother, and MOB's 2 older children. Home situation is reportedly safe and adequate. Patient's parent/guardian status: MOB is a 27-year-old single female, involved with the FOB a single 35-year-old male. Together for the last 3 years. During private conversation the MOB denied any type of abuse, control or intimidation in this relationship. DOUGLAS has 3 children, 2 of which are from the current FOB. Minor children include Tosin (age 8), Sudeep Jones (08/09/2020), and baby boy Cesar Jones (09/01/2022). MOB reports to have shared parenting with Tosin's father and to have a good coparenting relationship. Medical History: DOUGLAS is 4, para 2 now 3 after delivering Cesar. Adequate care. Delivered Cesar at 38 weeks gestation. weight 7 pounds 14 ounces. 7 and 8 at 1 and 5 minutes of life respectively. Educational Status: Per record DOUGLAS is an eighth-grade education. No reported concerns with reading, writing, or learning comprehension. 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 FOB reports to be self-employed in construction. Supplies: MOB reports to have necessary supplies to care for the including safe sleep space and a car seat. Childcare/Caregiver(s): MOB is the primary caregiver along with help from the FOB. Transportation: Denies any issues with transportation. Programs/Agencies Involved: Active with [employer] for food and medical. Active with WIC. No other agency involvement is reported. No history of children services reported. Behavioral Health Issues: Mental Health History: MOB reports history of depression as a teenager reports was tried on various different medications including Abilify, that Topamax, and Xanax. This rewriter explored whether MOB was ever diagnosed with bipolar, to which MOB affirmed but reported her mother took MOB to various doctors in several MOB's mother got the answers that MOB's mother desired. MOB reports been off of medication for about 4 years now and feels much more clear in her mind than ever in the past. Record indicates a history of overdose at the age of 14. MOB reports teenagers were difficult due to MOB's mother having drug addiction issues. Denies any history of suicidal ideations, intent or attempts as an adult. No depression and anxiety though admits sometimes feels stress. Substance Use History: No reported substance use history. MOB is a former tobacco smoker. Negative drug screen upon admission on 09/01/2022. Family History: MOB reports her mother had a history of drug and alcohol addiction when that MOB was growing up. Drug Screens: Maternal drug screen negative on 09/01/2022. No further testing. Family/Social Stressors: Unplanned but accepted. Support Systems: MOB reports support from the FOB when he is not working, reporting the FOB will help with the kids on the weekends and MOB is able to get some time to herself when needed. MOB's grandmother lives in the home and is reported as a good support to the MOB. Depression/Shaken Baby/Safe Sleeping: MOB is aware of safe sleeping and shaken baby prevention. Reviewed mood and anxiety disorders, including touching on psychosis as bipolar is a risk factor to this. ASSESSMENT: Met with MOB and FOB in room, introducing to self and social work role. MOB pleasant, and cooperative and willing to engage in conversation with social worker aide. FOB present though only engaged when elicited by this rewriter, watching TV and holding baby. FOB quiet and affect blunted, though MOB reports the FOB is tired and ready to get home. MOB reports to have all necessary supplies to care for the infant, reports to feel a quintero with baby and looking forward to going home. Denies any concerns with home-going. Reports to have support to help with the baby from the FOB and MOB's grandmother. MOB denies any concerns at this time with depression or anxiety and denies any thoughts of suicide as an adult, reporting that much of what MOB (as a teenager was situational to the MOB's mother. MOB excepted information on mood and anxiety disorders which does include resources for support should MOB start feeling distress in the future. No voiced concerns by nursing staff regarding parent-child interactions or bonding. PLAN: MOB and discharging home. Resources provided for home-going. No other services requested or indicated. -WALTER Salazar, BERNARD *This note was generated with [employer] dictation software. It may contain incorrect words, spelling, and punctuation that were not noted in review of the chart prior to signing*
== END 2022-09-02 14:00 | disposition home or self-care (01) | DRG 560 ==
PROVIDERS: Admitting Provider Obstetrics & Gynecology; PCP Internal Medicine; Visit Provider Obstetrics & Gynecology
DX: O62.3 Precipitate labor (principal); Z37.0 Single live birth; F17.290 Nicotine dependence, other tobacco product, uncomplicated; Z3A.38 38 weeks gestation of pregnancy; O99.334 Smoking (tobacco) complicating childbirth; O99.02 Anemia complicating childbirth; N89.8 Other specified noninflammatory disorders of vagina; O26.893 Other specified pregnancy related conditions, third trimester
CPT/HCPCS: 59025; 59050; 80307; 84112; 85025; 86850; 86900; 86901; 87426; 99218; J7120; G0378; J2405